=== PATIENT | female | born 1995 | race Caucasian/White ===

== ENCOUNTER 2022-06-17 22:43 | Observation (INO) ==
[2022-06-18] MEDS ORDERED: Iopamidol - 370 500 ML MLS IVP ONE (00:12)
[2022-06-18] MEDS ORDERED: Piperacillin/Tazobactam 3.375 GM in 0.9 % Sodium Chloride Mini Bag 100 ML IVPB ONE (00:13)
[2022-06-18] MEDS ORDERED: 0.9 % Sodium Chloride 1,000 ML IV ONE (00:13)
[2022-06-18] MEDS ORDERED: Vancomycin 1,500 MG/265 ML IV.SOLN IVPB ONE (00:14)
[2022-06-18] MEDS ORDERED: Ketorolac 30 MG/ML VIAL IVP ONE (00:14)
[2022-06-18 01:38] LABS: Basophils # 0.1 K/mcL (0.0-0.2); Basophils % 0.3 %; Eosinophils # 0.4 K/mcL (0.0-0.6); Eosinophils % 2.4 %; Hematocrit 36.1 % (35.3-44.9); Hemoglobin 11.9 g/dL (11.5-15.4); Immature Granulocytes % 0.7 % (0-4); Lymphocytes # 3.8 K/mcL (0.6-4.6); Mean Corpuscular Hemoglobin 29.7 pg (28.0-33.3); Mean Platelet Volume 11.1 fL (9.4-12.4); Monocytes # 1.7 K/mcL (0.0-1.3); Monocytes % 9.5 %; Neutrophils # 12.1 K/mcL (1.6-8.9); Platelet Count 387 K/mcL (140-400); Red Blood Count 4.01 M/mcL (3.82-4.97); Red Cell Distribution Width 13.3 % (11.5-14.5); Segmented Neutrophils % 66.1 %; White Blood Count 18.3 K/mcL (4.3-11.1)
[2022-06-18 03:01] LABS: Alanine Aminotransferase 7 Units/L (7-52); Albumin 3.3 g/dL (3.5-5.7); Albumin/Globulin Ratio 0.9 (1.1-2.2); Alkaline Phosphatase 52 Units/L (34-104); Aspartate Amino Transferase 9 Units/L (13-39); BUN/Creatinine Ratio 15 (6-26); Bilirubin,Total 0.2 mg/dL (0.3-1.0); Blood Urea Nitrogen 11 mg/dL (6-20); Calcium 8.8 mg/dL (8.6-10.3); Carbon Dioxide 27 mEq/L (23-29); Chloride 102 mEq/L (98-107); Globulin 3.6 g/dL (2.4-3.5); Glucose 98 mg/dL (70-105); Osmolality,Calculated 281 (280-300); Potassium 3.7 mEq/L (3.5-5.1); Sodium 136 mEq/L (136-145); Total Protein 6.9 g/dL (6.4-8.9)
[2022-06-18] MEDS ORDERED: Naloxone 0.4 MG/ML INJ IVP PRN (03:01)
[2022-06-18] MEDS ORDERED: MOM Conc 10 ML UD.LIQ PO PRN (03:01)
[2022-06-18] MEDS ORDERED: Melatonin 3 MG TABLET PO PRN (03:01)
[2022-06-18] MEDS ORDERED: Ondansetron ODT 4 MG TAB.RAPDIS SL PRN (03:01)
[2022-06-18] MEDS ORDERED: Vancomycin (wt based) 1,000 MG VIAL IVPB SCH (04:00)
[2022-06-18 04:18] LABS: Bilirubin,Urine Negative (Negative); Blood,Urine Negative (Negative); Clarity,Urine Clear (Clear); Color,Urine Colorless (Yellow); Glucose,Urine (UA) Normal (Normal); Ketones,Urine Negative (Negative); Leukocyte Esterase,Urine Negative (Negative); Mucus,Urine Few per lpf (None-Few); Nitrite,Urine Negative (Negative); PH,Urine 7.5 pH Units (5.0-8.0); Protein,Urine 30 mg/dL (Neg-Trace); RBC,Urine 0-3 per hpf (0-3); Specific Gravity,Urine > 1.030 (1.010-1.025); Squamous Epithelial Cell,Urine Moderate per hpf (None-Few); Urobilinogen,Urine Normal (Normal); WBC,Urine 0-3 per hpf (0-3)
[2022-06-18] MEDS: *HR* HYDROcodone/Acet 5/325 mg TABLET PO PRN ×3 (04:43→23:12)
[2022-06-18 05:45] LABS: Creatine Kinase 41 Units/L (30-223)
[2022-06-18] MEDS: Cefepime HCl 2,000 MG in 0.9 % Sodium Chloride 10 ML IVP SCH ×3 (05:52→22:01)
[2022-06-18] MEDS: *HR* Heparin 5,000 UNIT/ML VIAL SQ SCH ×3 (05:56→22:01)
[2022-06-18 05:57] LABS: Adenovirus Not Detected (Not Detect); Bordetella Pertussis Not Detected (Not Detect); Chlamydophila pneumoniae Not Detected (Not Detect); Coronavirus 229E Not Detected (Not Detect); Coronavirus HKU1 Not Detected (Not Detect); Coronavirus NL63 Not Detected (Not Detect); Coronavirus OC43 Not Detected (Not Detect); Human Metapneumovirus Not Detected (Not Detect); Human Rhinovirus/Enterovirus Not Detected (Not Detect); Influenza A Subtype 2009 H1 Not Detected (Not Detect); Influenza B Not Detected (Not Detect); Mycoplasma pneumoniae Not Detected (Not Detect); Parainfluenza Virus 1 Not Detected (Not Detect); Parainfluenza Virus 2 Not Detected (Not Detect); Parainfluenza Virus 3 Not Detected (Not Detect); Parainfluenza Virus 4 Not Detected (Not Detect); Respiratory Syncytial Virus Not Detected (Not Detect); SARS-CoV-2 Not Detected (Not Detect)
[2022-06-18] MEDS: Acetaminophen 325 MG TABLET PO PRN (05:59)
[2022-06-18 07:19] LABS: Hepatitis B Surface Antigen Nonreactive (Nonreactive)
[2022-06-18 07:48] LABS: Hepatitis B Core IgM Nonreactive (Nonreactive)
[2022-06-18 07:50] LABS: Hepatitis A Antibody IgM Nonreactive (Nonreactive)
[2022-06-18] MEDS ORDERED: Cefepime HCl 2,000 MG in 0.9 % Sodium Chloride 10 ML IVP SCH (08:00)
[2022-06-18 08:20] LABS: C-Reactive Protein 37 mg/L (Less than 10)
[2022-06-18] MEDS: Nicotine 14 MG PATCH.TD24 TD SCH (09:05)
[2022-06-18 11:43] LABS: Hepatitis C Virus Antibody Reactive (Nonreactive)
[2022-06-18] MEDS: *HR* Buprenorphine HCl 8 MG TAB.SUBL SL SCH ×2 (12:53→22:00)
[2022-06-18] MEDS: Vancomycin 1,250 MG/262.5 ML IV.SOLN IVPB SCH (13:09)
[2022-06-18] MEDS: Gabapentin 300 MG CAPSULE PO SCH ×2 (15:02→22:00)
[2022-06-18] MEDS: valACYclovir 500 MG TABLET PO SCH (17:52)
[2022-06-19] MEDS: Vancomycin 1,250 MG/262.5 ML IV.SOLN IVPB SCH (00:37)
[2022-06-19 04:27] VITALS: O2SAT 99
[2022-06-19] MEDS: valACYclovir 500 MG TABLET PO SCH ×2 (04:50→20:02)
[2022-06-19] MEDS: Cefepime HCl 2,000 MG in 0.9 % Sodium Chloride 10 ML IVP SCH ×2 (04:51→12:15)
[2022-06-19] MEDS: *HR* HYDROcodone/Acet 5/325 mg TABLET PO PRN ×2 (04:54→12:16)
[2022-06-19] MEDS: *HR* Heparin 5,000 UNIT/ML VIAL SQ SCH ×2 (04:55→14:37)
[2022-06-19] MEDS: Nicotine 14 MG PATCH.TD24 TD SCH (09:02)
[2022-06-19] MEDS: Gabapentin 300 MG CAPSULE PO SCH ×3 (09:03→21:18)
[2022-06-19] MEDS: *HR* Buprenorphine HCl 8 MG TAB.SUBL SL SCH ×2 (09:03→21:18)
[2022-06-19 09:47] VITALS: BP 119/77; PULSE 84; TEMP 98.7
[2022-06-19] MEDS ORDERED: Doxycycline 100 MG CAPSULE PO SCH (13:15)
[2022-06-19] MEDS: Acetaminophen 325 MG TABLET PO PRN (15:12)
[2022-06-19] MEDS: cephALEXin 500 MG CAPSULE PO SCH ×2 (15:12→21:18)
[2022-06-19] MEDS ORDERED: *HR* HYDROcodone/Acet 7.5/325 mg TABLET PO PRN (16:10)
[2022-06-19] MEDS ORDERED: valACYclovir 500 MG TABLET ONE (19:56)
[2022-06-19] MEDS ORDERED: *HR* HYDROcodone/Acet 10/325 mg TABLET ONE (19:57)
== END 2022-06-19 21:38 | disposition left against medical advice (07) ==
LOC: EMEROOARM 22:43 → 4WAOSI 22:43 → SUATTDRO 06-18 03:32 → 4WAOSI 06-18 04:21
PROVIDERS: ADMIT Internal Medicine; ATTEND Internal Medicine